=== PATIENT | male | born 1960 | race Caucasian/White ===

== ENCOUNTER → 2016-11-27 | Outpatient (CLI) | payer BC ==
[~2016-11-27] MED LIST: FLEXERIL10 MG PO; NAPROSYN500 MG PO; NKHM; PREDNICOT20 MG PO
[2016-11-27 08:40] LABS: HEMOGLOBIN A1c 5.7 % (4.8-5.6)
[2016-11-27 08:51] LABS: ALBUMIN 3.5 gm/dl (3.1-4.5); ALKALINE PHOSPHATASE 64 U/L (45-117); BILIRUBIN, TOTAL 0.3 mg/dl (0.2-1.0); BUN 12 mg/dl (7-24); CARBON DIOXIDE 25 mmol/L (21-32); CHLORIDE 111 mmol/L (98-107); EST GLOM FILT AFRICAN AMERICAN > 60 ml/min; GLUCOSE 97 mg/dL (65-99); SGOT/AST 22 IU/L (3-35); SGPT/ALT 30 U/L (12-78); SODIUM 144 mmol/L (136-145)
== END | disposition home or self-care (01) ==
LOC: LAB 07:40
PROVIDERS: Family Medicine
DX: E74.9 Disorder of carbohydrate metabolism, unspecified (principal)

== ENCOUNTER → 2017-03-14 | Outpatient (CLI) | payer OTHER | END | disposition home or self-care (01) | LOC: RAD 10:50 | DX: M77.32 Calcaneal spur, left foot (principal) ==

== ENCOUNTER → 2017-12-06 | Outpatient (CLI) | payer OTHER ==
[2017-12-06 07:45] LABS: HEMOGLOBIN 14.2 g/dl (14.0-18.0); MEAN CELL VOLUME 95.2 fl (80.0-94.0); MEAN CORPUSCULAR HGB 32.2 pg (27.0-31.0); MEAN CORPUSCULAR HGB CONC 33.8 g/dl (33.0-37.0); RED BLOOD COUNT 4.41 10*6/uL (4.50-5.90); RED CELL DISTRI WIDTH 13.4 % (0-14.5); WHITE BLOOD COUNT 4.8 10*3/uL (4.8-10.8)
[2017-12-06 08:06] LABS: ALBUMIN 3.6 gm/dl (3.1-4.5); BUN 11 mg/dl (7-24); CHLORIDE 111 mmol/L (98-107); CHOLESTEROL 155 mg/dL (<200); CREATININE 0.91 mg/dL (0.70-1.30); POTASSIUM 4.1 mmol/L (3.5-5.1); SGOT/AST 21 IU/L (3-35); SGPT/ALT 30 U/L (12-78); SODIUM 142 mmol/L (136-145); TOTAL PROTEIN 6.9 gm/dL (6.4-8.2); TRIGLYCERIDES 49 mg/dl (<150); VLDL CHOLESTEROL 10 mg/dL (6-40)
[2017-12-06 08:10] LABS: ALKALINE PHOSPHATASE 62 U/L (45-117); HDL CHOLESTEROL 59 mg/dl (40-60); LDL CHOLESTEROL 86 mg/dL (9-159)
== END | disposition home or self-care (01) ==
LOC: LAB 07:02
PROVIDERS: Family Medicine
DX: Z12.5 Encounter for screening for malignant neoplasm of prostate (principal); E78.00 Pure hypercholesterolemia, unspecified; E55.9 Vitamin D deficiency, unspecified; R53.83 Other fatigue; J32.9 Chronic sinusitis, unspecified

== ENCOUNTER → 2019-01-24 | Outpatient (CLI) | payer OTHER ==
[2019-01-24 08:29] LABS: HEMOGLOBIN 14.4 g/dl (14.0-18.0); MEAN CELL VOLUME 95.5 fl (80.0-94.0); MEAN CORPUSCULAR HGB 32.7 pg (27.0-31.0); MEAN CORPUSCULAR HGB CONC 34.3 g/dl (33.0-37.0); MEAN PLATELET VOLUME 9.9 fl (9.6-12.3); RED BLOOD COUNT 4.4 10*6/uL (4.50-5.90); RED CELL DISTRI WIDTH 13.7 % (0-14.5); WHITE BLOOD COUNT 6.6 10*3/uL (4.8-10.8)
[2019-01-24 09:02] LABS: ALBUMIN 3.7 gm/dl (3.1-4.5); ALKALINE PHOSPHATASE 60 U/L (45-117); BUN 13 mg/dl (7-24); CHLORIDE 111 mmol/L (98-107); CREATININE 0.95 mg/dL (0.70-1.30); POTASSIUM 4.1 mmol/L (3.5-5.1); SGOT/AST 22 IU/L (3-35); SGPT/ALT 31 U/L (12-78); SODIUM 144 mmol/L (136-145); TOTAL PROTEIN 6.8 gm/dL (6.4-8.2)
== END | disposition home or self-care (01) ==
LOC: LAB 07:26
PROVIDERS: Family Medicine
DX: E55.9 Vitamin D deficiency, unspecified (principal); R53.83 Other fatigue

== ENCOUNTER → 2020-09-08 | Outpatient (CLI) | payer SELFPAY | END | disposition home or self-care (01) | LOC: COVID19 11:04 | PROVIDERS: ATTEND Family Medicine | DX: U07.1 COVID-19 (principal) ==